=== PATIENT | female | born 1955 | race Caucasian/White ===

== ENCOUNTER 2022-04-20 04:10 | Inpatient (IN) | payer OTHER ==
[~2022-04-20] VITALS: Ht 165.1 cm; Wt 80.7 kg
[2022-04-20 04:42] LABS: HEMOGLOBIN 11.6 gm/dl (12.3-15.3); RED BLOOD COUNT 3.3 M/UL (4.00-5.10); WHITE BLOOD COUNT 16.6 K/UL (4.5-11.0)
[2022-04-20] MEDS ORDERED: AMLODIPINE BESY10 MG PO (09:46)
[2022-04-20] MEDS ORDERED: CITALOPRAM HBR40 MG PO (09:47)
[2022-04-20] MEDS ORDERED: FUROSEMIDE20 MG PO (09:48)
[2022-04-20] MEDS ORDERED: CLONIDINE HCL0.3 MG PO (09:48)
[2022-04-20] MEDS ORDERED: CLOPIDOGREL75 MG PO (09:49)
[2022-04-20] MEDS ORDERED: LISINOPRIL20 MG PO (09:50)
[2022-04-20] MEDS ORDERED: MELOXICAM15 MG PO (09:50)
[2022-04-20] MEDS ORDERED: ONDANSETRON ODT4 MG PO (09:51)
[2022-04-20] MEDS ORDERED: KLONOPIN0.5 MG PO (09:52)
[2022-04-20] MEDS ORDERED: PRAVASTATIN SOD80 MG PO (09:52)
[2022-04-20] MEDS ORDERED: HYDROCODON-ACE1 EAC2 PO (09:53)
[2022-04-20] MEDS ORDERED: METOPROLOL TART50 MG PO (09:54)
[2022-04-20] MEDS ORDERED: VITAMIN D21250 MCG PO (09:55)
[2022-04-20] MEDS ORDERED: ROBAXIN 750 MG750 MG PO (09:56)
[2022-04-21 06:23] LABS: HEMOGLOBIN 10.9 gm/dl (12.3-15.3); RED BLOOD COUNT 3.11 M/UL (4.00-5.10); WHITE BLOOD COUNT 16.1 K/UL (4.5-11.0)
[2022-04-22 04:38] LABS: BUN/CREATININE RATIO 26 (0-10)
[2022-04-22 07:57] LABS: HEMOGLOBIN 9.6 gm/dl (12.3-15.3); WHITE BLOOD COUNT 14.3 K/UL (4.5-11.0)
[2022-04-22 07:59] LABS: RED BLOOD COUNT 2.7 M/UL (4.00-5.10)
[2022-04-23 05:12] LABS: HEMOGLOBIN 11.3 gm/dl (12.3-15.3)
[2022-04-23 05:18] LABS: RED BLOOD COUNT 3.21 M/UL (4.00-5.10); WHITE BLOOD COUNT 20.2 K/UL (4.5-11.0)
[2022-04-23 05:30] LABS: BUN/CREATININE RATIO 28 (0-10)
[2022-04-24 04:36] LABS: BUN/CREATININE RATIO 30 (0-10)
[2022-04-24 04:58] LABS: HEMOGLOBIN 12.3 gm/dl (12.3-15.3); RED BLOOD COUNT 3.49 M/UL (4.00-5.10); WHITE BLOOD COUNT 20.2 K/UL (4.5-11.0)
[2022-04-24 06:10] LABS: ALPRAZOLAM Negative (Cutoff=100); AMPHETAMINES, URINE Negative ng/mL (Cutoff=1000); BARBITURATE Negative ng/mL (Cutoff=200); BENZODIAZEPINES Positive ng/mL (Cutoff=100); BENZODIAZEPINES See Final Results ng/mL (Cutoff=200); CANNABINOIDS Negative ng/mL (Cutoff=20); CLONAZEPAM Positive (.); CLONAZEPAM CONFIRM 131 ng/mL (Cutoff=100); COCAINE (METABOLITE) Negative ng/mL (Cutoff=300); CREATININE 48.4 mg/dL (20.0-300.0); FLURAZEPAM Negative (Cutoff=100); LORAZEPAM Positive (.); LORAZEPAM CONFIRM 140 ng/mL (Cutoff=100); MEPERIDINE Negative ng/mL (Cutoff=200); METHADONE Negative ng/mL (Cutoff=300); MIDAZOLAM Positive (.); MIDAZOLAM CONFIRM 248 ng/mL (Cutoff=100); NORDIAZEPAM Negative (Cutoff=100); OPIATES Negative ng/mL (Cutoff=300); OPIATES See Final Results ng/mL (Cutoff=300); OXAZEPAM Negative (Cutoff=100); PHENCYCLIDINE Negative ng/mL (Cutoff=25); PROPOXYPHENE Negative ng/mL (Cutoff=300); TEMAZEPAM Negative (Cutoff=100); TRIAZOLAM Negative (Cutoff=100)
[2022-04-24 19:56] LABS: BUN/CREATININE RATIO 40 (0-10)
[2022-04-25 02:09] LABS: BUN/CREATININE RATIO 44 (0-10)
[2022-04-25 06:24] LABS: HEMOGLOBIN 11.2 gm/dl (12.3-15.3); RED BLOOD COUNT 3.28 M/UL (4.00-5.10)
[2022-04-25 06:31] LABS: WHITE BLOOD COUNT 26.6 K/UL (4.5-11.0)
[2022-04-25 07:02] LABS: BUN/CREATININE RATIO 44 (0-10)
[2022-04-25 10:05] LABS: BUN/CREATININE RATIO 44 (0-10)
[2022-04-25 13:25] LABS: BODY FLUID SOURCE BRONCHIAL LAVAGE
[2022-04-25 14:32] LABS: BUN/CREATININE RATIO 50 (0-10)
[2022-04-25 18:11] LABS: BUN/CREATININE RATIO 49 (0-10)
[2022-04-25 22:02] LABS: BUN/CREATININE RATIO 52 (0-10)
[2022-04-26 05:05] LABS: BUN/CREATININE RATIO 61 (0-10)
[2022-04-26 08:16] LABS: HEMOGLOBIN 11.1 gm/dl (12.3-15.3); RED BLOOD COUNT 3.2 M/UL (4.00-5.10)
[2022-04-26 08:17] LABS: WHITE BLOOD COUNT 15.5 K/UL (4.5-11.0)
[2022-04-26 18:44] LABS: BUN/CREATININE RATIO 70 (0-10)
[2022-04-26] MEDS ORDERED: ZYVOX IV 6600 MG/300 INJ (21:12)
[2022-04-26] MEDS ORDERED: MERREM IV (21:12)
[2022-04-26] MEDS ORDERED: PROTONIX IV40 MG IVP (21:12)
[2022-04-26] MEDS ORDERED: AMIODARONE HCL200 MG NG (21:12)
[2022-04-26] MEDS ORDERED: DIGOXIN250 MCG PO (21:12)
[2022-04-26] MEDS ORDERED: NEO (21:12)
[2022-04-26] MEDS ORDERED: VITAMIN B-1100 M1 PO (21:12)
[2022-04-26] MEDS ORDERED: PRECEDEX (21:14)
[2022-04-26] MEDS ORDERED: ENOXAPARIN80 MG/0.8 SC (21:16)
[2022-04-26] MEDS ORDERED: FENTANYL IV (21:16)
[2022-04-26] MEDS ORDERED: PROPOFOL IV (21:16)
[2022-04-26] MEDS ORDERED: LEVALBUTER1.25 MG/3 NEB (21:39)
[2022-04-26] MEDS ORDERED: IPRATROPIU0.2 MG/1 M NEB (21:39)
[2022-04-26] MEDS ORDERED: PULMICORT0.5 MG/21 INH (21:41)
[2022-04-27 04:47] LABS: HEMOGLOBIN 10.3 gm/dl (12.3-15.3); RED BLOOD COUNT 2.9 M/UL (4.00-5.10); WHITE BLOOD COUNT 16.9 K/UL (4.5-11.0)
[2022-04-27 06:41] LABS: BUN/CREATININE RATIO 70 (0-10)
--- NOTE | 2022-04-27 08:14 | NUR ---
FLIGHT TEAM TRANSPORTED PATIENT OUT OF FACILITY VIA STRETCHER. THE PATIENT IS IN STABLE CONDITION WITH PROPOFOL AT 40, FENTANYL AT 125 AND KARTHIK AT 35. SON, ARIEL YATES, NOTIFIED OF PATIENT TRANSFER TO [facility]. UPDATED REPORT CALLED TO ACCEPTING NURSE, SUDHA AT [facility]. DR. NINA NOTIFIED OF TRANSFER WELL.
== END 2022-04-27 08:24 | disposition short-term general hospital (02) | DRG 870 ==
LOC: ER1 04:10 → CDU 08:27 → CCU 08:27
PROVIDERS: Family Medicine; Internal Medicine; Internal Medicine Critical Care Medicine; Internal Medicine Nephrology; Internal Medicine Pulmonary Disease; Physician Assistant; ADMIT Internal Medicine
PROC: B24BZZZ Ultrasonography of Heart with Aorta (ICD-10-PCS; 2022-04-20)
PROC: 05HM33Z Insertion of Infusion Device into Right Internal Jugular Vein, Percutaneous Approach (ICD-10-PCS; 2022-04-20)
PROC: B543ZZA Ultrasonography of Right Jugular Veins, Guidance (ICD-10-PCS; 2022-04-20)
PROC: 3E043XZ Introduction of Vasopressor into Central Vein, Percutaneous Approach (ICD-10-PCS; principal; 2022-04-21)
PROC: 3E03329 Introduction of Other Anti-infective into Peripheral Vein, Percutaneous Approach (ICD-10-PCS; 2022-04-21)
PROC: 5A09357 Assistance with Respiratory Ventilation, Less than 24 Consecutive Hours, Continuous Positive Airway Pressure (ICD-10-PCS; 2022-04-21)
PROC: 5A1955Z Respiratory Ventilation, Greater than 96 Consecutive Hours (ICD-10-PCS; 2022-04-22)
PROC: 0BH18EZ Insertion of Endotracheal Airway into Trachea, Via Natural or Artificial Opening Endoscopic (ICD-10-PCS; 2022-04-22)
DX: A41.9 Sepsis, unspecified organism (principal); L89.153 Pressure ulcer of sacral region, stage 3; I26.99 Other pulmonary embolism without acute cor pulmonale; I50.33 Acute on chronic diastolic (congestive) heart failure; J18.9 Pneumonia, unspecified organism; R65.21 Severe sepsis with septic shock; J80 Acute respiratory distress syndrome; N17.0 Acute kidney failure with tubular necrosis; N30.00 Acute cystitis without hematuria; M62.82 Rhabdomyolysis; E87.2 Acidosis; E87.1 Hypo-osmolality and hyponatremia; I47.1 Supraventricular tachycardia; I82.411 Acute embolism and thrombosis of right femoral vein; F10.239 Alcohol dependence with withdrawal, unspecified; E78.5 Hyperlipidemia, unspecified; F41.9 Anxiety disorder, unspecified; F32.A Depression, unspecified; F17.210 Nicotine dependence, cigarettes, uncomplicated; T36.8X5A Adverse effect of other systemic antibiotics, initial encounter; R74.01 Elevation of levels of liver transaminase levels; E83.42 Hypomagnesemia; E55.9 Vitamin D deficiency, unspecified; L89.326 Pressure-induced deep tissue damage of left buttock; L89.316 Pressure-induced deep tissue damage of right buttock; L89.626 Pressure-induced deep tissue damage of left heel; L89.616 Pressure-induced deep tissue damage of right heel; L89.896 Pressure-induced deep tissue damage of other site; R94.5 Abnormal results of liver function studies; Z98.890 Other specified postprocedural states; Z82.3 Family history of stroke; Z86.73 Personal history of transient ischemic attack (TIA), and cerebral infarction without residual deficits; Z74.01 Bed confinement status; Z90.710 Acquired absence of both cervix and uterus; Z90.49 Acquired absence of other specified parts of digestive tract; Z83.3 Family history of diabetes mellitus; Z82.49 Family history of ischemic heart disease and other diseases of the circulatory system; Z79.899 Other long term (current) drug therapy
CPT/HCPCS: ECHO; 31500; 36415; 36600; 51702; 71045; 80048; 80053; 80202; 80307; 81001; 82533; 82550; 82553; 82570; 82803; 83605; 83735; 83880; 83935; 84132; 84133; 84156; 84295; 84300; 84443; 84484; 85025; 85027; 85610; 85730; 87015; 87040; 87070; 87086; 87116; 87205; 87206; 87252; 89050; 89051; 93005; 93306; 93970; 94002; 94003; 94640; 94660; 94664; 94760; 96374; 96375; 99285; A6212; C9113; G0480; J0330; J0696; J1160; J1335; J1630; J1644; J1650; J1720; J1940; J2020; J2185; J2250; J2370; J2597; J2704; J3370; J3475; J7030; J7040; J7050; J7070; P9047; Q9967; U0002